=== PATIENT | male | born 1995 | race Two or more races ===

== ENCOUNTER 2016-10-31 08:42 | Inpatient (IN) | payer OTHER ==
[2016-10-31] VITALS (12 sets, daily range): BP systolic 132–156; BP diastolic 67–78; PULSE 82–108; RESP 16–22; TEMP 98.8–99; O2SAT 96–98
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
[2016-10-31] MEDS ORDERED: HYDROmorphone HCL PF 1 MG/ML VIAL IV PRN (11:45)
[2016-10-31] MEDS ORDERED: SODIUM CHLOR 0.9% 1000 ML INJ 1,000 ML IV SCH (11:48)
[2016-10-31] MEDS ORDERED: SODIUM CHLORIDE 0.9% FLUSH 5 ML FLUSH IVF PRN (12:00)
[2016-10-31] MEDS ORDERED: Post-op Orders (for Pharmacy) MISC XX ONE (12:00)
[2016-10-31] MEDS ORDERED: oxyCODONE/ACETAMINOPHEN 5 MG/325 MG TAB PO PRN ×2 (12:00→16:00)
[2016-10-31] MEDS ORDERED: HYDROmorphone HCL 2 MG TAB PO PRN (12:00)
[2016-10-31] MEDS ORDERED: NALOXONE HCL 0.4 MG/ML AMP IV PRN (12:00)
[2016-10-31] MEDS ORDERED: ONDANSETRON HCL 4 MG/2 ML VIAL IV PRN ×2 (12:00→16:00)
[2016-10-31] MEDS: PANTOPRAZOLE SOD 40 MG DELAYED RELEASE TAB PO SCH (12:31)
[2016-10-31] MEDS: HYDROmorphone HCL PF 1 MG/ML VIAL IV PUSH PRN ×2 (12:32→21:59)
[2016-10-31] MEDS: SODIUM CHLOR 0.9% 1000 ML INJ 1,000 ML IV SCH (15:55)
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
[2016-10-31] MEDS ORDERED: ACETAMINOPHEN 325 MG TAB PO PRN (16:00)
[2016-10-31] MEDS ORDERED: ACETAMINOPHEN/HYDROcodone 325 MG/5 MG TAB PO PRN (16:00)
[2016-10-31] MEDS ORDERED: SODIUM CHLORIDE 0.9% FLUSH 5 ML FLUSH IV FLUSH PRN (16:00)
[2016-10-31] MEDS: SODIUM CHLORIDE 0.9% FLUSH 5 ML FLUSH IV FLUSH SCH (21:00)
[2016-10-31] MEDS ORDERED: SODIUM CHLORIDE 0.9% FLUSH 5 ML FLUSH IVF SCH (21:00)
[2016-10-31] MEDS: DOCUSATE SODIUM 100 MG CAP PO SCH (21:58)
[2016-11-01 01:17] VITALS: BP 129/75; PULSE 90; RESP 22; TEMP 97.4; O2SAT 97
[2016-11-01] MEDS: SODIUM CHLOR 0.9% 1000 ML INJ 1,000 ML IV SCH (03:14)
[2016-11-01 04:55] LABS: AUTOMATED NEUTROPHIL # 5.9 TH/MM3 (1.8-7.7); BASOPHIL % 0.3 % (0.0-2.0); EOSINOPHIL # 0.2 TH/MM3 (0-0.4); EOSINOPHIL % 2.2 % (0.0-4.0); HEMATOCRIT 39.2 % (39.0-51.0); HEMO FLAGS DIFF FINAL; LYMPH % 22.2 % (9.0-44.0); MEAN CELL VOLUME 89.9 FL (80.0-100.0); MEAN CORPUSCULAR HEMOGLOBIN 30.6 PG (27.0-34.0); MEAN CORPUSCULAR HGB CONC 34.1 % (32.0-36.0); MONO % 9.9 % (0.0-8.0); NEUT % 65.4 % (16.0-70.0); PLATELET COUNT 214 TH/MM3 (150-450); RED BLOOD COUNT 4.37 MIL/MM3 (4.50-5.90); RED CELL DISTRIBUTION WIDTH 13.7 % (11.6-17.2)
[2016-11-01 05:10] VITALS: BP 127/92; PULSE 74; RESP 20; TEMP 98.7; O2SAT 98
[2016-11-01 05:32] LABS: BICARBONATE 24.2 MEQ/L (21.0-32.0); POTASSIUM 3.9 MEQ/L (3.5-5.1)
--- NOTE | 2016-11-01 06:51 | RADRPT ---
EXAM DATE/TIME: 11/01/2016 05:29 [facility] COMPARISON: No previous studies available for comparison. INDICATIONS : Short of breath, coughing, multiple rib fractures MEDICAL HISTORY : multiple rib fractures SURGICAL HISTORY : None. ENCOUNTER: Subsequent ACUITY: 1 day PAIN SCORE: 9/10 LOCATION: Bilateral chest FINDINGS: There is mild atelectasis at the left lung base. No obvious pneumothorax. Cardiac and mediastinal con tours are normal. Osseous structures are intact. CONCLUSION: Left basilar. Reyes Paz MD on November 01, 2016 at 6:49 Board Certified Radiologist. This report was verified electronically.
[2016-11-01 08:00] VITALS: BP 142/76; PULSE 96; RESP 18; TEMP 97.9; O2SAT 95
[2016-11-01] MEDS: PANTOPRAZOLE SOD 40 MG DELAYED RELEASE TAB PO SCH (08:59)
[2016-11-01] MEDS: SODIUM CHLORIDE 0.9% FLUSH 5 ML FLUSH IV FLUSH SCH (08:59)
[2016-11-01] MEDS: DOCUSATE SODIUM 100 MG CAP PO SCH (08:59)
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
[2016-11-01] MEDS ORDERED: INFLUENZA VIRUS VACCINE (QUADRIVALENT) 0.5 ML SYR IM ONE (10:00)
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
[2016-11-01 12:00] VITALS: BP 148/90; PULSE 92; RESP 18; TEMP 98.4; O2SAT 98
[2016-11-01] MEDS ORDERED: DOCU1CAP39 PO (13:15)
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
[2016-11-01] MEDS ORDERED: MAGNESIUM HYDROXIDE SUSP 30 ML CUP PO SCH (21:00)
== END 2016-11-01 15:33 | disposition home or self-care (01) | DRG 200 ==
LOC: NEPC 08:42 → NEDA 09:19 → NEDH 15:12 → N06B 20:00
PROVIDERS: ADMIT Surgery; ATTEND Surgery
DX: S27.0XXA Traumatic pneumothorax, initial encounter (principal); S22.42XA Multiple fractures of ribs, left side, initial encounter for closed fracture; K76.0 Fatty (change of) liver, not elsewhere classified; S22.20XA Unspecified fracture of sternum, initial encounter for closed fracture; S42.102A Fracture of unspecified part of scapula, left shoulder, initial encounter for closed fracture; D72.829 Elevated white blood cell count, unspecified; V47.5XXA Car driver injured in collision with fixed or stationary object in traffic accident, initial encounter; Y92.410 Unspecified street and highway as the place of occurrence of the external cause; Y93.89 Activity, other specified
CPT/HCPCS: 71010; 80048; 85025; 94150; 99285; J1170; J7030